=== PATIENT | female | born 1995 | race Caucasian/White ===

== ENCOUNTER → 2017-12-08 16:53 | Outpatient (CLI) | payer OTHER ==
[~2017-12-08 16:53] MED LIST: CEFUROXIME500 MG PO; KETO10TA2 PO; MEDROLPACK PO; MUCINEX1200 MG/BO PO; OSEL75CA PO; PROVENTIL0.5 ML/2.5 IH; SILVADENE20 GM TOP; TUSSI-PRES LIQ118 ML PO; ZITHROMAX500 MG PO
== END | disposition home or self-care (01) ==
LOC: LAB 16:53
DX: R50.9 Fever, unspecified (principal)

== ENCOUNTER 2018-02-03 16:03 | Emergency (ER) | payer OTHER ==
[~2018-02-03] VITALS: Ht 162.6 cm; Wt 108.9 kg
[~2018-02-03 16:03] MED LIST changes: +PROVENTIL HFA6.7 GM IH; +ZYNCOF 20-400120 ML PO
== END 2018-02-03 21:55 | disposition home or self-care (01) ==
LOC: ER 16:03
DX: R60.0 Localized edema (principal); R19.7 Diarrhea, unspecified